=== PATIENT | male | born 1955 | race Caucasian/White ===

== ENCOUNTER → 2020-10-17 | Day surgery (SDC) | payer MEDICARE, OTHER ==
[~2020-10-17] MED LIST: ADVAIR HFA 230-28 GM INH; ALBUTEROL NEB; CLARITIN10 MG PO; COREG 6.25MG6.25 MG PO; COZAAR100 MG PO; DIFLUCAN150 MG PO; FOLGARD TABLET1 EACH PO; GARLIC1000 MG PO; LACTINEX1 EACH PO; LEVAQUIN500 MG PO; LEVAQUIN750 MG PO; NORCO 5-325 TA1 EACH PO; NYSTATIN SUSP1 ML/ML SSW; OMEPRAZOLE40 MG PO; ONDANSETRON ODT8 MG PO; OXYGEN; PREDNISONE 10MG10 MG PO; PROLIA60 MG/1 ML IJ; SINGULAIR10 MG PO; TUDORZA PRESS400 MCG INH; TUMERIC PO; ULTRAM50 MG PO; VENTOLIN (2.5 MG/3 M INH; VENTOLIN HFA IN18 GM INH; VITAMIN C1000 MG PO; VITAMIN D310 MC3 PO; VITAMIN D32000 UNIT PO; [UNRECOGNIZED DRUG - OTHER] PO; [UNRECOGNIZED DRUG - OTHER] PO; [UNRECOGNIZED DRUG - OTHER] PO; [UNRECOGNIZED DRUG - REMARK]
[2020-10-17 10:44] LABS: HCT 45.1 % (42.0-52.0); MCH 30.3 pg (25.0-31.0); MCHC 33.3 g/dL (32.0-36.0); MCV 91.1 fL (78.0-100.0); RBC 4.95 M/uL (4.70-6.00); RDW 12.4 % (11.5-14.0); WBC 7.3 K/uL (4.0-10.5)
[2020-10-17 11:09] LABS: ALBUMIN 3.8 g/dL (3.4-5.0); BILIRUBIN - TOTAL 1.3 mg/dL (0.2-1.0); BUN/CREAT RATIO (CALC) 17.8 RATIO; CREATININE 1.01 mg/dL (0.67-1.17); GLOBULIN (CALCULATION) 3.1 g/dL; POTASSIUM 3.8 mmol/L (3.5-5.1); TOTAL PROTEIN 6.9 g/dL (6.4-8.2)
== END | disposition home or self-care (01) ==
LOC: FAS 09:29
PROVIDERS: Surgery
DX: K40.20 Bilateral inguinal hernia, without obstruction or gangrene, not specified as recurrent (principal); K42.0 Umbilical hernia with obstruction, without gangrene; K21.9 Gastro-esophageal reflux disease without esophagitis; J44.9 Chronic obstructive pulmonary disease, unspecified; I87.2 Venous insufficiency (chronic) (peripheral); I10 Essential (primary) hypertension; M81.0 Age-related osteoporosis without current pathological fracture; F19.90 Other psychoactive substance use, unspecified, uncomplicated; R35.1 Nocturia; Z79.899 Other long term (current) drug therapy; Z98.890 Other specified postprocedural states; Z87.891 Personal history of nicotine dependence; Z20.822 Contact with and (suspected) exposure to COVID-19; Z99.81 Dependence on supplemental oxygen; Z98.1 Arthrodesis status; Z95.828 Presence of other vascular implants and grafts
CPT/HCPCS: 36415; 80053; C1781; J0690; J1170; J1885; J2250; J2405; J2550; J2704; J2710; J3010; J7120

== ENCOUNTER 2021-08-22 18:31 | Emergency (ER) | payer MEDICARE, OTHER ==
[2021-08-22 19:28] LABS: BASOPHIL 0.3 % (0-2); EOSINOPHIL 0 % (0-7); HCT 47.6 % (42.0-52.0); HGB 15.4 g/dl (13.2-18.0); LYMPHOCYTE 13.9 % (15-48); MCH 29.3 pg (25.0-31.0); MCHC 32.4 g/dL (32.0-36.0); MCV 90.5 fL (78.0-100.0); MONOCYTE 12.1 % (0-12); MPV 10.2 fL (6.0-9.5); NEUTROPHIL 73.3 % (41-80); NRBC 0; PLT 143 K/uL (150-400); RBC 5.26 M/uL (4.70-6.00); RDW 12.4 % (11.5-14.0); WBC 7.2 K/uL (4.0-10.5)
[2021-08-22 19:51] LABS: ALBUMIN 3.5 g/dL (3.4-5.0); BILIRUBIN - TOTAL 1.1 mg/dL (0.2-1.0); BUN/CREAT RATIO (CALC) 20.4 RATIO; CREATININE 0.93 mg/dL (0.67-1.17); GLOBULIN (CALCULATION) 3.5 g/dL; POTASSIUM 3.8 mmol/L (3.5-5.1)
[2021-08-22 19:56] LABS: LACTIC ACID 1.5 mmol/L (0.4-1.9)
[2021-08-22] MEDS ORDERED: MEDROL 4MG DOSEP4 MG PO (21:29)
[2021-08-22] MEDS ORDERED: ZPAK PO (21:29)
[2021-08-22] MEDS ORDERED: ONDANSETRON ODT4 MG PO (21:30)
[2021-08-22] MEDS ORDERED: VENTOLIN HFA18 GM INH (21:30)
== END 2021-08-22 22:18 | disposition home or self-care (01) ==
LOC: FER 18:31
PROVIDERS: Emergency Medicine
DX: U07.1 COVID-19 (principal)
CPT/HCPCS: 36415; 71045; 80053; 83605; 83880; 84145; 85025; 86140; 87040; J1100; J2543; J3370; J7030; J7050; U0002